=== PATIENT | male | born 1990 | race Caucasian/White ===

== ENCOUNTER 2021-03-29 12:36 | Emergency (ER) | payer OTHER ==
[~2021-03-29] VITALS: Ht 180 cm; Wt 89.0 kg
--- NOTE | 2021-03-29 13:25 | ED Respiratory ---
General Chief Complaint: Respiratory Problems Stated Complaint: CP/TIGHTNESS/SOB/COVID+ THURSDAY Nursing Triage Note: THE PT IS AMBULATORY TO THE ROOM WIHTOUT DIFFICULTY. NO DISTRESS IS SEEN ON ARRIVAL. LOC IS NORMAL FOR THE PT. THE PT IS WANTING A CHEST XR TODAY. Source: patient Exam Limitations: no limitations History of Present Illness Date Seen by Provider: Mar 29, 2021 Time Seen by Provider: 13:01 Initial Comments Patient to the ER by private conveyance from home with chief complaint that he is having some chest pain shortness of air going on for the past week or so. He was diagnosed a week ago with COVID-19. His mother is in the ICU and he wanted to come in and get a chest x-ray. He has been taking Tylenol and ibuprofen. He has been taking Mucinex. His cough has been nonproductive. He has not had any fevers today. Allergies and Home Medications Patient Home Medication List Home Medication List Reviewed: Yes Review of Systems Review of Systems Constitutional: No chills; fever, malaise EENTM: No ear discharge, No ear pain Respiratory: cough; No phlegm; short of breath; No wheezing Cardiovascular: chest pain; No edema, No Hx of Intervention, No palpitations Gastrointestinal: No abdominal pain, No constipation, No diarrhea Genitourinary: No discharge, No dysuria Musculoskeletal: No back pain, No joint pain All Other Systems Reviewed Negative Unless Noted: Yes Past Jmigsud-Gtgfjf-Imgswy Hx Patient Social History Tobacco Use?: No Use of E-Cig and/or Vaping dev: No Substance use?: No Physical Exam Vital Signs - First Documented 03/29/21 13:06 Temp 36.8 Pulse 89 Resp 89 B/P (MAP) 139/82 (101) Pulse Ox 96 Capillary Refill : Less Than 3 Seconds Height: '" Weight: lbs. oz. kg; 27.00 BMI Method: General Appearance: WD/WN, no apparent distress Eyes: Bilateral Eye Normal Inspection, Bilateral Eye EOMI HEENT: PERRL/EOMI, pharynx normal Neck: full range of motion, normal inspection Respiratory: chest non-tender, lungs clear, normal breath sounds, no respiratory distress, no accessory muscle use Cardiovascular: normal peripheral pulses, regular rate, rhythm Extremities: non-tender, normal inspection, no pedal edema, normal capillary refill Neurologic/Psychiatric: alert, normal mood/affect, oriented x 3 Skin: normal color, warm/dry Progress/Results/Core Measures Suspected Sepsis SIRS Temperature: Pulse: 89 Respiratory Rate: 89 Blood Pressure 139 /82 Mean: 101 Results/Orders My Orders Orders - HI FELIX Chest 1 View, Ap/Pa Only (03/29/21 13:22) Covid-19 External Lab Results (03/29/21 13:22) Vital Signs/I&O 03/29/21 03/29/21 13:06 15:10 Temp 36.8 36.8 Pulse 89 85 Resp 89 16 B/P (MAP) 139/82 (101) 137/80 Pulse Ox 96 96 Capillary Refill : Less Than 3 Seconds Blood Pressure Mean: 101 Progress Note : Time: 13:24 Progress Note Chest x-ray. Aseptic vital signs. Lung sounds are clear. Chest pain reproduced by deep inspiration and seems to be pleuritic in nature. Diagnostic Imaging Diagonstic Imaging: Xray Plain Films/CT/US/NM/MRI: chest Comments [facility] [place], [place] NAME: SARAH DUDLEY [facility] REC#: [id number] PT STATUS: REG ER : 1990 PHYSICIAN: HI FELIX MD ADMIT DATE: 03/29/21/ER Draft Date of Exam:03/29/21 CHEST 1 VIEW, AP/PA ONLY INDICATION: Shortness of breath. FINDINGS: Portable chest. The lungs are well-aerated and clear. The heart is not enlarged. No pulmonary edema or hilar adenopathy. No pneumothorax or pleural effusion. No bony abnormalities. IMPRESSION: Normal portable chest Dictated on workstation # [id number] Dict: 03/29/21 1410 Trans: 03/29/21 1412 CV [id number] Interpreted by: RICH STAHL MD Electronically signed by: Reviewed: Reviewed by Me Departure Impression Primary Impression: COVID-19 Additional Impression: Pleurisy Disposition: 01 HOME, SELF-CARE Condition: Stable Departure-Patient Inst. Decision time for Depature: 14:35 Patient Instructions: Pleuritic Chest Pain (DC) Add. Discharge Instructions: Naproxen 500 mg twice a day as necessary for chest pain. Tylenol 1000 mg every 8 hours as necessary for chest pain. Return to the ER if you are having consistent oxygen desaturation on a pulse oximeter below 90% while at rest. All discharge instructions reviewed with patient and/or family. Voiced understanding. HI FELIX Mar 29, 2021 13:25
--- NOTE | 2021-03-29 14:13 | Diagnostic Imaging Report ---
INDICATION: Shortness of breath. FINDINGS: Portable chest. The lungs are well-aerated and clear. The heart is not enlarged. No pulmonary edema or hilar adenopathy. No pneumothorax or pleural effusion. No bony abnormalities. IMPRESSION: Normal portable chest Dictated by: Dictated on workstation # [id number]
[2021-03-29 15:10] VITALS: BP 137/80
== END 2021-03-29 14:30 | disposition home or self-care (01) ==
LOC: ER 12:40
DX: U07.1 COVID-19 (principal); R09.1 Pleurisy; Z73.0 Burn-out
CPT/HCPCS: 71045

== ENCOUNTER → 2022-01-15 | Outpatient (CLI) | payer OTHER ==
[2022-01-15 14:14] VITALS: BP 130/89
--- NOTE | 2022-01-15 15:08 | Cardiology Stress Test Report ---
Stress Test Report Date of Procedure/Referring: Date of Procedure: January 15, 2022 PCP Janeth Tellez Aprn Admitting Physician Indications: HTN Baseline Heart Rate: 71 Baseline Blood Pressure: Blood Pressure Systolic: 130 Blood Pressure Diastolic: 89 Baseline EKG: Baseline EKG: NSR Summary/Conclusion: Summary: In summary, the patient started exercising with a baseline heart rate, blood pressure and EKG mentioned above Patient was able to exercise for a total of 10 minutes on Chidi protocol, METs 11.7 Maximum heart rate 183 Maximum blood pressure 239/96 Stress EKG, Minimal nondiagnostic changes Recovery EKG , Return to baseline Conclusion: 1. Good exercise tolerance for a total of 10 minutes on Chidi protocol, 11.7 METs, achieving 95 percent of maximum expected heart rate 2. Minimal nondiagnostic EKG changes with exercise returned to baseline during recovery 3. No arrhythmia was noted 4. Severe hypertensive response to exercise with peak blood pressure 239/96 return to baseline during recovery VIDYA OLSEN MD January 15, 2022 15:08
== END ==
LOC: CARD 13:30
PROVIDERS: ATTEND Nurse Practitioner Family
DX: I10 Essential (primary) hypertension (principal); R07.9 Chest pain, unspecified; R00.2 Palpitations
CPT/HCPCS: 93017; 93306

== ENCOUNTER → 2022-04-04 | Outpatient (CLI) | payer OTHER | LOC: CARD 10:04 | PROVIDERS: ATTEND Internal Medicine Cardiovascular Disease | DX: R00.2 Palpitations (principal) ==